=== PATIENT | male | born 1950 | race Caucasian/White ===

== ENCOUNTER 2019-11-04 08:58 | Emergency (ER) | payer OTHER ==
[~2019-11-04] VITALS: Ht 182.9 cm; Wt 83.7 kg
[2019-11-04 08:59] VITALS: BP 126/89
[2019-11-04] MEDS ORDERED: CEFTRIAXONE 1,000 MG IM ONE (09:30)
[2019-11-04] MEDS ORDERED: DIPH,PERTUSS(ACELL),TET VAC/PF 0.5 ML IM-VACC ONE ×2 (09:30→09:37)
[2019-11-04] MEDS ORDERED: CEFTRIAXONE 1,000 MG ONE (09:37)
== END 2019-11-04 10:17 | disposition home or self-care (01) ==
LOC: ED 09:23
DX: L03.012 Cellulitis of left finger (principal)
CPT/HCPCS: 73130; 90471; 90715; 96372; 99284; J0696

== ENCOUNTER 2019-11-08 07:44 | Emergency (ER) | payer OTHER ==
[~2019-11-08] VITALS: Ht 182.9 cm; Wt 85.6 kg
[2019-11-08 07:49] VITALS: BP 118/87
--- NOTE | 2019-11-08 08:01 | NUR ---
FIRST CONTACT WITH PT. PT HERE FOR RECHECK OF A SPLINTER ON LEFT MIDDLE FINGER. PT STATES IT HAS DRAINAGE, WAS GIVEN ABX LAST VIST. FINGER IS SWOLLEN AND RED. PT'S AOX4. RESPS EVEN AND UNLABORED. EDMD AT BEDSIDE EVALUATING AT THIS TIME.
--- NOTE | 2019-11-08 08:12 | NUR ---
Patient given discharge instructions and they have confirmed that they understand the instructions. Patient ambulatory with steady gait.
== END 2019-11-08 08:13 | disposition home or self-care (01) ==
LOC: ED 08:09
DX: S61.233D Puncture wound without foreign body of left middle finger without damage to nail, subsequent encounter (principal); F17.200 Nicotine dependence, unspecified, uncomplicated; X58.XXXD Exposure to other specified factors, subsequent encounter
CPT/HCPCS: 99281